=== PATIENT | female | born 1980 | race Caucasian/White ===

== ENCOUNTER 2019-09-06 11:33 | Emergency (ER) | payer BC ==
[~2019-09-06] VITALS: Ht 162.6 cm; Wt 77.1 kg
[~2019-09-06 11:33] MED LIST: ALPRAZOLAM; BIOTIN2500 MCG PO; EFFEXOR XR75 MG PO; GABAPENTIN 100100 MG PO; HYDROXYZINE HCL50 MG PO; IBUPROFEN 600600 M1 PO; METOPROLOL SUCC50 MG PO; NORCO 5-325 TA1 EACH PO; ONDANSETRON HCL4 M2 PO; VIIBRYD40 MG PO; XANAX1 MG PO; [UNRECOGNIZED DRUG - OTHER]
[2019-09-06] MEDS ORDERED: BRINTELLIX10 MG PO (13:11)
[2019-09-06] MEDS ORDERED: PRINIVIL20 M1 PO (13:11)
[2019-09-06] MEDS ORDERED: DIAZEPAM 5 MG5 MG PO (13:12)
[2019-09-06] MEDS ORDERED: TRAZODONE HCL100 MG PO (13:12)
[2019-09-06] MEDS ORDERED: LITHIUM CARBON300 M6 PO (13:12)
[2019-09-06 14:15] LABS: URINE BILIRUBIN NEGATIVE (Negative); URINE BLOOD NEGATIVE (Negative); URINE CLARITY CLEAR; URINE COLOR YELLOW; URINE GLUCOSE-RANDOM* NEGATIVE (Negative); URINE KETONES TRACE (Negative); URINE LEUKOCYTES-REFLEX NEGATIVE (Negative); URINE NITRITE-REFLEX NEGATIVE (Negative); URINE PROTEIN (DIPSTICK) NEGATIVE (Negative); URINE UROBILINOGEN 0.2 E.U./dl (0.2-1.0)
[2019-09-06 15:28] LABS: ABSOLUTE NEUTROPHILS 6.6 thou/uL (1.4-8.2); BASOPHILS 0.2 % (0.0-2.0); EOSINOPHILS 2.1 % (0.0-3.0); HEMATOCRIT 37.8 % (37.0-47.0); HEMOGLOBIN 12.4 gm/dL (12.0-15.0); LYMPHOCYTES 17.6 % (24.0-44.0); MCH 29.1 pg (26.0-34.0); MCHC 32.9 g/dL (28.0-37.0); MCV 88.6 fL (80.0-100.0); PLATELET COUNT 242 thou/uL (150-400); POLYS 74.1 % (36.0-66.0); RBC 4.27 mil/uL (4.20-5.00); RDW 13.4 % (10.5-14.5)
[2019-09-06 15:41] LABS: CALCIUM 10.2 mg/dL (8.5-10.1); CREATININE 0.9 mg/dL (0.6-1.0); POTASSIUM 3.4 mmol/L (3.5-5.1)
[2019-09-06 15:50] LABS: TROPONIN-I <0.06 ng/mL (<0.06)
[2019-09-06] MEDS ORDERED: ZOFRAN ODT4 MG PO (16:52)
[2019-09-06 16:57] VITALS: BP 132/84
--- NOTE | 2019-09-06 17:27 | EKG ---
[facility] [address] [place] [address] ELECTROCARDIOGRAM REPORT Name: PROSPER BECKETT Room #: DEP [facility]#: [id number] Admission: 09/06/19 Attend Phys: Discharge: 09/06/19 Date of : 76 Report #: [id number] THIS REPORT FOR: cc: FAM - Family physician unknown FAM - Family physician unknown Yemi Lu MD [facility] ~ THIS REPORT FOR: //name// [facility] ED Test Date: 2019-09-06 Test Time: 14:40:49 Pat Name: PROSPER BECKETT Department: Room: Gender: [employer]: [facility] : 1980 Requested By: Dulce Whitlock Order Number: [id number] MD: Yemi Lu Measurements Intervals [place] Rate: 75 P: 60 IN: 155 QRS: 20 QRSD: 90 T: 51 QT: 409 QTc: 457 Interpretive Statements Sinus rhythm Nonspecific ST segment abnormality Compared to ECG 10/08/2013 17:01:05 Sinus tachycardia no longer present Electronically Signed On 09-06-2019 17:26:52 PHONE TRIAGE SPECIALIST by Yemi Lu [email or web address] <ELECTRONICALLY SIGNED> By: Yemi Lu MD, FACC 09/06/19 [id number] Yemi Lu MD, [facility] /EPI
== END 2019-09-06 17:02 | disposition home or self-care (01) ==
LOC: ER 11:33
PROVIDERS: Emergency Medicine
DX: I95.1 Orthostatic hypotension (principal); G47.30 Sleep apnea, unspecified; F32.9 Major depressive disorder, single episode, unspecified; F41.9 Anxiety disorder, unspecified; Z98.890 Other specified postprocedural states; Z88.8 Allergy status to other drugs, medicaments and biological substances